=== PATIENT | male | born 1970 ===

== ENCOUNTER 2021-06-01 12:36 | Emergency (ER) | payer OTHER ==
[~2021-06-01] VITALS: Ht 177.8 cm; Wt 77.1 kg
[2021-06-01] MEDS ORDERED: COZAAR25 MG PO (12:54)
[2021-06-01] MEDS ORDERED: HYZAAR 50-12.51 EACH PO (16:32)
== END 2021-06-01 17:02 ==
LOC: ER 12:36
DX: I10 Essential (primary) hypertension (principal)

== ENCOUNTER 2021-06-17 15:11 | Emergency (ER) | payer OTHER ==
[~2021-06-17] VITALS: Ht 177.8 cm; Wt 79.4 kg
[~2021-06-17 15:11] MED LIST: COZAAR25 MG PO; HYZAAR 50-12.51 EACH PO
== END 2021-06-17 20:40 | disposition home or self-care (01) ==
LOC: ER 15:11
DX: I10 Essential (primary) hypertension (principal)

== ENCOUNTER 2021-12-06 14:09 | Emergency (ER) | payer OTHER ==
[~2021-12-06] VITALS: Ht 177.8 cm; Wt 79.4 kg
== END 2021-12-06 19:35 | disposition home or self-care (01) ==
LOC: ER 14:09
DX: M54.2 Cervicalgia (principal); I10 Essential (primary) hypertension; Z88.6 Allergy status to analgesic agent; R59.0 Localized enlarged lymph nodes

== ENCOUNTER 2022-04-02 10:35 | Emergency (ER) | payer OTHER ==
[~2022-04-02] VITALS: Ht 177.8 cm; Wt 79.4 kg
[2022-04-02] MEDS ORDERED: LOSARTAN-HCTZ1 EAC2 PO (10:51)
[2022-04-02] MEDS ORDERED: NORFLEX100MG PO (13:41)
== END 2022-04-02 13:49 | disposition home or self-care (01) ==
LOC: ER 10:35
DX: S69.92XA Unspecified injury of left wrist, hand and finger(s), initial encounter (principal); X58.XXXA Exposure to other specified factors, initial encounter; Y93.9 Activity, unspecified; Y92.9 Unspecified place or not applicable; Y99.9 Unspecified external cause status; Z88.6 Allergy status to analgesic agent